=== PATIENT | female | born 1970 | race Hispanic/Latino ===

== ENCOUNTER 2017-08-16 03:36 | Emergency (ER) | payer SELFPAY ==
[~2017-08-16] VITALS: Ht 154.9 cm; Wt 62.6 kg
[2017-08-16] MEDS ORDERED: KETOROLAC TROMETHAMINE 30 MG/ML VIAL IV STA (03:57)
[2017-08-16] MEDS ORDERED: SODIUM CHLORIDE 0.9% 1000ML 1,000 ML IV SCH (04:00)
[2017-08-16 05:51] VITALS: BP 122/78
== END 2017-08-16 05:52 | disposition home or self-care (01) ==
LOC: FSED 03:36
DX: R10.9 Unspecified abdominal pain (principal); G89.29 Other chronic pain
CPT/HCPCS: 36415; 74177; 80048; 80076; 80307; 81003; 81025; 83690; 85025; 96360; 96374; 99284; J1885